=== PATIENT | female | born 1995 | race African-American/Black ===

== ENCOUNTER 2019-01-17 17:09 | Outpatient (CLI) | payer OTHER ==
[~2019-01-17] VITALS: Ht 152.4 cm; Wt 72.9 kg
[2019-01-17 17:25] VITALS: BP 124/81
[2019-01-17] MEDS ORDERED: ACET325C PO (17:31)
[2019-01-17] MEDS ORDERED: PRENTAB9 PO (17:31)
[2019-01-17 18:17] LABS: BASO % 0.2 % (0.0-1.0); EOS % 0.2 % (0.0-3.0); HEMATOCRIT 35.4 % (36.0-47.0); HEMOGLOBIN 11.6 g/dl (12.0-15.5); LYMPH # 1.2 10^3/uL (1.5-6.5); LYMPH % 14.3 % (24.0-44.0); MEAN CORPUSCULAR HEMOGLOBIN 28.6 pg (27.0-33.0); MEAN CORPUSCULAR HGB CONC 32.8 g/dl (32.0-36.5); MEAN CORPUSCULAR VOLUME 87.4 fl (80.0-96.0); MONO # 0.7 10^3/uL (0.0-0.8); MONO % 8.8 % (0.0-5.0); NEUTROPHILS # 6.1 10^3/uL (1.8-7.7); NEUTROPHILS % 75.3 % (36.0-66.0); PLATELET COUNT, AUTOMATED 180 10^3/uL (150-450); RED BLOOD COUNT 4.05 10^6/uL (4.00-5.40); WHITE BLOOD COUNT 8.2 10^3/uL (4.0-10.0)
== END 2019-01-17 18:54 | disposition home or self-care (01) ==
LOC: M LDO 17:09
PROVIDERS: ATTEND Obstetrics & Gynecology
DX: O26.893 Other specified pregnancy related conditions, third trimester (principal); R07.82 Intercostal pain; O99.89 Other specified diseases and conditions complicating pregnancy, childbirth and the puerperium; M93.28 Osteochondritis dissecans other site; Z3A.32 32 weeks gestation of pregnancy
CPT/HCPCS: 36415; 59025; 85025; G0378; G0463

== ENCOUNTER 2019-01-24 15:31 | Outpatient (CLI) | payer OTHER ==
[~2019-01-24] VITALS: Ht 152.4 cm; Wt 72.8 kg
[~2019-01-24 15:31] MED LIST: ACET325C PO; PRENTAB9 PO
[2019-01-24 15:49] VITALS: BP 124/77
[2019-01-24 16:54] LABS: APPEARANCE, URINE HAZY (CLEAR); BACTERIA, URINE AUTO 2+ (NEGATIVE); BILIRUBIN, URINE AUTO NEGATIVE (NEGATIVE); BLOOD, URINE BLOOD 3+ (NEGATIVE); COLOR, URINE RED (YELLOW); GLUCOSE, URINE (UA) AUTO NEGATIVE (NEGATIVE); KETONE, URINE AUTO NEGATIVE (NEGATIVE); LEUKOCYTE ESTERASE, URINE AUTO TRACE (NEGATIVE); NITRITE, URINE AUTO NEGATIVE (NEGATIVE); PROTEIN, URINE AUTO 1+ mg/dL (NEGATIVE); RBC, URINE AUTO TNTC /HPF (0-3); SPECIFIC GRAVITY URINE AUTO 1.006 (1.002-1.035); SQUAMOUS EPITHELIAL CELL UR AU 12 /HPF (0-6); UROBILINOGEN, URINE AUTO 0.2 mg/dL (0.0-2.0); WBC, URINE AUTO 37 /HPF (0-3)
--- NOTE | 2019-01-24 17:09 | IPNPDOC ---
Text Note Date of Service The patient was seen on 01/24/19. NOTE Triage Note Rekha is a 23yo with SIUP at approx 33wk presenting with an episode of bloody urination, no vaginal bleeding. She was seen in triage on and [address] Tolentino and then me in triage for right upper back/side pain at which time she diagnosed with costochondritis (normal CBC and urine dip with SCE cl/th/high and no CVAT). She notes that she continued to have intermittent pain after those presentations in the same location- until this afternoon when she had the episode of bloody urination. She has had absolutely no pain since then. She does not feel ctx. Has had no LOF. Good movement. No f/c/n/v. Denies dysuria/frequency. Vitals wnl, afebrile General: WDWN, resting comfortably in bed Abdomen: soft, NTTP, gravid SSE (RN as fire sprinkler installer): NO blood in vaginal vault, normal white physiologic discharge, cervix is visually closed/thick/high Cat I FHRT with + accels, mod oc, no decels [place]: irregular ctx Labs: Urinalysis: red blood cells too numerous to count, 12 squam, trace LE, 37 WBC, negative nitrite Assessment: Rekha is a 23yo with SIUP at approx 33wk with bloody urination and resolution of right side pain, which is consistent with passage of renal nephrolith. UA shows RBCs too numerous to count. No dysuria or fevers, no concern for pyelo. SSE shows cervix thick/closed/high- has irregular ctx, but no concern for PTL (also had irreg ctx on 2 prior presentations). Reassuring status. Plan: -discussed dx of likely having passed kidney stone -safe for discharge home -continue routine OB appts -encouraged greatly increasing hydration -return precautions discussed MD WLALACE Horowitz Fishbone, I+O VSSolo, I+O Vital Signs Date Time Temp Pulse Resp B/P (MAP) Pulse Ox O2 Delivery O2 Flow Rate FiO2 01/24/19 15:49 98.6 85 18 124/77 (93) Anna Escobedo MD January 24, 2019 17:09
== END 2019-01-24 17:05 | disposition home or self-care (01) ==
LOC: M LDO 15:31
PROVIDERS: ATTEND Obstetrics & Gynecology
DX: O99.89 Other specified diseases and conditions complicating pregnancy, childbirth and the puerperium (principal); M54.9 Dorsalgia, unspecified; R31.9 Hematuria, unspecified; Z3A.33 33 weeks gestation of pregnancy
CPT/HCPCS: 59025; 81001; G0378; G0463

== ENCOUNTER 2019-02-11 19:30 | Outpatient (CLI) | payer OTHER ==
[~2019-02-11] VITALS: Ht 152.4 cm; Wt 79.1 kg
[2019-02-11] VITALS (7 sets, daily range): BP systolic 137–166; BP diastolic 87–104
[2019-02-11 20:28] LABS: HEMATOCRIT 32.7 % (36.0-47.0); HEMOGLOBIN 11.1 g/dl (12.0-15.5); MEAN CORPUSCULAR HEMOGLOBIN 28.5 pg (27.0-33.0); MEAN CORPUSCULAR HGB CONC 33.9 g/dl (32.0-36.5); MEAN CORPUSCULAR VOLUME 83.8 fl (80.0-96.0); PLATELET COUNT, AUTOMATED 161 10^3/uL (150-450); WHITE BLOOD COUNT 7.3 10^3/uL (4.0-10.0)
[2019-02-11] MEDS ORDERED: BETAMETHASONE SOLUSPAN 6MG/ML INJ 5ML (J0702) IM ONE (20:30)
[2019-02-11 20:50] LABS: ALBUMIN 2.4 GM/DL (3.2-5.2); ALT/SGPT 11 U/L (12-78); BILIRUBIN,TOTAL 0.3 MG/DL (0.2-1.0); BLOOD UREA NITROGEN 12 MG/DL (7-18); CALCIUM LEVEL 8.3 MG/DL (8.5-10.1); CARBON DIOXIDE LEVEL 24 MEQ/L (21-32); CHLORIDE LEVEL 113 MEQ/L (98-107); CREATININE FOR GFR 0.85 MG/DL (0.55-1.30); GLOMERULAR FILTRATION RATE > 60.0 (>60); GLUCOSE, FASTING 100 MG/DL (70-100); LDH LACTATE DEHYDROGENASE 244 U/L (84-246); POTASSIUM SERUM 3.7 MEQ/L (3.5-5.1); SODIUM LEVEL 143 MEQ/L (136-145); TOTAL PROTEIN 5.8 GM/DL (6.4-8.2)
[2019-02-11] MEDS ORDERED: ACETAMINOPHEN TAB 650MG DOSE (2X325MG) PO PRN (21:00)
--- NOTE | 2019-02-11 21:18 | IPNPDOC ---
Text Note Date of Service The patient was seen on 02/11/19. NOTE Ms. Martini is a 23 yo at 36+1 weeks gestation with known pre eclampsia who presented to L&D for a blood pressure check this evening. During her clinic appointment this past Thursday she was noted to have new onset hypertension. She was directed to complete tox labs, including a 24 hour urine protein collection which just resulted today and was 743 mg, ruling her in for pre eclampsia. She was then directed to complete a blood pressure check in the office, however she was out of town so came to L&D this evening for the BP check instead when she returned. Tonight she reports feeling well. She has had intermittent headaches over the last couple days but nothing severe. She denies any visual changes, RUQ pain, or SOB. is otherwise uncomplicated. Vitals - BPs mostly mildly elevated, but had two severe range: 160s/90s. Afebrile, non tachycardic. General - AAOX3, sitting up in bed, NAD Abdomen - Gravid uterus, no fundal tenderness Extremities - No edema Bedside TAUS - Viable SIUP in cephalic presentation. JITENDRA 12.8cm. FHR tracing - Cat I with BL 120, moderate variability, +accels, no decels Labs: CBC - 7.3>11.1/32.7<161 BMP - 143/3.7--113/24--12/0.85<100 AST/ALT - 23/11 LDH - 244 Ms. Martini has known pre eclampsia and is clinically stable with normal kidney and liver function, however her blood pressure has trended upwards this evening. Will start her on PO labetalol and admit for observation overnight. 12mg IM BTMZ given at ~2030. Will move towards delivery should blood pressure be consistently severe range or she develops any other severe features of pre eclampsia. GBS swab performed on Thursday and results are currently still pending. All patient questions answered. DO WALLACE Menezes,Solo, I+O VS, Solo, I+O Laboratory Tests 02/11/19 20:21 Red Blood Count 3.90 L, Mean Corpuscular Volume 83.8, Mean Corpuscular Hemoglobin 28.5, Mean Corpuscular Hemoglobin Concent 33.9, Red Cell Distribution Width 12.4, Calcium Level 8.3 L, Aspartate Amino Transf (AST/SGOT) 23, Alanine Aminotransferase (ALT/SGPT) 11 L, Lactate Dehydrogenase 244, Alkaline Phosphatase 118 H, Total Bilirubin 0.3, Total Protein 5.8 L, Albumin 2.4 L THOMAS NELSON. DO Feb 11, 2019 21:18
[2019-02-11] MEDS: LABETALOL 200 MG TAB PO SCH (21:49)
[2019-02-12] VITALS (16 sets, daily range): BP systolic 123–159; BP diastolic 73–99
[2019-02-12] MEDS: LABETALOL 200 MG TAB PO SCH ×2 (08:03→21:14)
[2019-02-12 20:05] LABS: HEMATOCRIT 30.1 % (36.0-47.0); HEMOGLOBIN 10.1 g/dl (12.0-15.5); MEAN CORPUSCULAR HEMOGLOBIN 28.9 pg (27.0-33.0); MEAN CORPUSCULAR HGB CONC 33.6 g/dl (32.0-36.5); PLATELET COUNT, AUTOMATED 142 10^3/uL (150-450); WHITE BLOOD COUNT 9.9 10^3/uL (4.0-10.0)
[2019-02-12] MEDS ORDERED: BETAMETHASONE SOLUSPAN 6MG/ML INJ 5ML (J0702) IM ONE (20:30)
[2019-02-12 20:31] LABS: ALBUMIN 2.4 GM/DL (3.2-5.2); ALT/SGPT 10 U/L (12-78); BILIRUBIN,TOTAL 0.2 MG/DL (0.2-1.0); BLOOD UREA NITROGEN 12 MG/DL (7-18); CALCIUM LEVEL 7.9 MG/DL (8.5-10.1); CARBON DIOXIDE LEVEL 22 MEQ/L (21-32); CHLORIDE LEVEL 112 MEQ/L (98-107); CREATININE FOR GFR 0.81 MG/DL (0.55-1.30); GLOMERULAR FILTRATION RATE > 60.0 (>60); GLUCOSE, FASTING 128 MG/DL (70-100); LDH LACTATE DEHYDROGENASE 224 U/L (84-246); POTASSIUM SERUM 3.9 MEQ/L (3.5-5.1); SODIUM LEVEL 143 MEQ/L (136-145); TOTAL PROTEIN 5.5 GM/DL (6.4-8.2)
[2019-02-12 22:37] LABS: TOTAL PROTEIN,RANDOM URINE 160.8 MG/DL (0.0-12.0)
[2019-02-13] VITALS: BP 159/84
[2019-02-13 00:28] VITALS: BP 127/73
[2019-02-13 01:28] VITALS: BP 142/98
[2019-02-13 02:28] VITALS: BP 131/67
[2019-02-13 03:28] VITALS: BP 143/85
[2019-02-13 04:28] VITALS: BP 143/82
--- NOTE | 2019-02-13 16:15 | IPN ---
DATE: 02/12/2019 This patient was seen yesterday in the clinic for a routine evaluation and check and was found to have an elevated blood pressure of 152/1100 and 134/78. She was brought to labor and delivery for evaluation of her blood pressure and she had a complete workup, including 24-hour urine protein collection, which she had a total 23-hour urine protein of 743. She was supposed to come for reevaluation; however, she ended up in [place] and then came back from there to have evaluation. She had a one severe and one midrange blood pressure. She denied any uterine tenderness. She denied any right upper quadrant pain, visual disturbances, contractions or pedal edema. Her hemoglobin was 11.1, hematocrit 32.7 and platelets were 161. Her chemistry indicated that her BUN was 12, her creatinine was 0.85, her GFR is greater than 60. ALT was low, LDH and alkaline phosphatase were low. Glucose was 100. She was started on 200 of labetalol twice a day and closely monitored. She did have an ultrasound today, which showed that the vertex presenting, adequate amniotic fluid, no contractions and a category one strip. Throughout the day, her vital signs, her blood pressures all remaining in mid range. She did not have any severe blood pressures. Her lowest blood pressure on medication was 128/76. Her highest was 140/99. Our plan of management was to give her steroids, in which she has had her first dose at 2000 hours on the 02/11/2010. Her second dose at 2000 hours on 02/12/2019. We will redo her blood work after her second dose of steroids. The plan of care is to hopefully get her to 37 weeks with induction of labor unless there is severe range blood pressures or a significant change in her lab work. The patient expressed understanding, as did her . We answered all questions.
--- NOTE | 2019-02-14 06:57 | IPN ---
DATE: 02/12/2019 at 2000 This lady is being evaluated for preeclampsia and presently had repeat blood work. Her blood work repeat all came back normal. The only deviation was the protein/creatinine ratio which was 0.70. On evaluation, her blood pressures are within normal limits. She has had no severe range blood pressures. She has had no right upper quadrant pain. No visual disturbances. She does have a dull headache which is relieved with Tylenol. On the rest of the examination presently, eye grounds are normal, reflexes are normal upper and lower. Abdomen soft. She has a category one strip with some uterine irritability. No loss of fluid and no vaginal bleeding. Assessment is good kick chart. She did have ultrasound which confirmed the vertex presentation. We will continue to monitor her and our plan of care is to do induction of labor at 37 weeks unless indicated otherwise. The patient will be reevaluated in the morning.
--- NOTE | 2019-02-14 10:19 | DSES ---
DATE OF ADMISSION: 02/11/2019 DATE OF DISCHARGE: 02/13/2019 This lady is a 23-year-old one para 0 at 36 and 4 weeks of gestation who was admitted for elevated blood pressures. She had a 24-hour urine which indicated high protein of 743 and she had labs which suggests a preeclampsia. She denies any right upper quadrant pain, visual disturbances, shortness of breath or decrease in urinary output. She had one severe range blood pressure and was admitted. She was placed on labetalol and she was given steroids to enhance lung maturity for induction at 37 weeks of gestation. At 24 hours after her labetalol was complete reviewing her vital signs she had the occasional midrange blood pressure but the rest had been relatively within normal limits. The plan of care which was ongoing from admission was to get her to 37 weeks for induction of labor which will be on Thursday. Presently on evaluation she is afebrile, temperature 97.7. Her pulse is a is 93, respirations are 18 and her blood pressure is 140/80. She still had a dull headache for which Tylenol seems to be adequate. She is presently on Labetalol 200 twice a day which is stabilizing her blood pressure. On reviewing this morning and her lab work her hemoglobin 10.1, hematocrit 30.1 and platelets were 142. Her chemistry was all within normal limits. Liver enzymes and BUN and creatinine. The only other range blood pressure was her protein creatinine ratio of 0.75. Our plan of care at the present time is to have her eat and do a nonstress test and if blood pressures remain stable she is to be discharged and return to the clinic within 24 hours for blood pressure check. She was counseled regarding right upper quadrant pain, visual disturbances and increasing edema and decreased movement and or her urinary output declines the patient expresses understanding of the plan of care. She was dispensed her labetalol and our plans are to discharge her and 0900 hours this morning. All questions were answered. We had a 25-minute discussion which she understands we are attempting to get her to 37 weeks and she is booked for 0630 hours 4 days from now when she will be 37 weeks gestation.
== END 2019-02-13 08:30 | disposition home or self-care (01) ==
LOC: M LDO 19:30
PROVIDERS: ATTEND Obstetrics & Gynecology
DX: O26.893 Other specified pregnancy related conditions, third trimester (principal); R03.0 Elevated blood-pressure reading, without diagnosis of hypertension; O14.93 Unspecified pre-eclampsia, third trimester; Z3A.36 36 weeks gestation of pregnancy
CPT/HCPCS: 36415; 59025; 80053; 82570; 83615; 84156; 85027; 96372; G0463; J0702

== ENCOUNTER 2019-02-15 13:51 | Inpatient (IN) | payer OTHER ==
[2019-02-15] VITALS (36 sets, daily range): BP systolic 118–188; BP diastolic 76–117
[~2019-02-15] VITALS: Ht 152.4 cm; Wt 75.4 kg
[2019-02-15] MEDS ORDERED: MAG Sulf (L&D) 4 GM/100 ML 4 GM in APPROPRIATE DILUENT 1 EA IV ONE (14:00)
[2019-02-15] MEDS ORDERED: LABETALOL HCL 100 MG/20 ML VIAL As Ordered ONE ×3 (14:06→15:42)
[2019-02-15 14:15] LABS: HEMATOCRIT 31.8 % (36.0-47.0); HEMOGLOBIN 10.9 g/dl (12.0-15.5); MEAN CORPUSCULAR HEMOGLOBIN 29.5 pg (27.0-33.0); MEAN CORPUSCULAR HGB CONC 34.3 g/dl (32.0-36.5); MEAN CORPUSCULAR VOLUME 86.2 fl (80.0-96.0); PLATELET COUNT, AUTOMATED 131 10^3/uL (150-450); RED BLOOD COUNT 3.69 10^6/uL (4.00-5.40); WHITE BLOOD COUNT 18.9 10^3/uL (4.0-10.0)
[2019-02-15] MEDS ORDERED: MAGNESIUM SULFATE 50% 5GM/10ML(4MEQ/ML) SYRINGE XX ONE (14:15)
[2019-02-15] MEDS ORDERED: MIDAZOLAM INJ 2 MG/2 ML VIAL (J2250) As Ordered ONE ×2 (14:18→15:02)
[2019-02-15] MEDS ORDERED: fentaNYL 100 MCG/2 ML INJECTION (J3010) As Ordered ONE ×2 (14:19→14:20)
[2019-02-15 14:22] LABS: INR 1.09; PARTIAL THROMBOPLASTIN TIME 25.9 SECONDS (25.4-37.6); PROTHROMBIN TIME 14.2 SECONDS (12.1-14.4)
[2019-02-15] MEDS ORDERED: OXYTOCIN INJ 10 UNITS/ML VIAL (J2590) As Ordered ONE (14:22)
[2019-02-15] MEDS ORDERED: ROCURONIUM BROMIDE 50 MG/5 ML VIAL As Ordered ONE (14:22)
[2019-02-15 14:29] LABS: ALBUMIN 2.6 GM/DL (3.2-5.2); ALT/SGPT 61 U/L (12-78); BILIRUBIN,DIRECT 0.2 MG/DL (0.0-0.2); BILIRUBIN,TOTAL 0.5 MG/DL (0.2-1.0); BLOOD UREA NITROGEN 13 MG/DL (7-18); CALCIUM LEVEL 7.9 MG/DL (8.5-10.1); CARBON DIOXIDE LEVEL 24 MEQ/L (21-32); CHLORIDE LEVEL 109 MEQ/L (98-107); CREATININE FOR GFR 0.86 MG/DL (0.55-1.30); GLOMERULAR FILTRATION RATE > 60.0 (>60); GLUCOSE, FASTING 74 MG/DL (70-100); MAGNESIUM LEVEL 1.7 MG/DL (1.8-2.4); POTASSIUM SERUM 3.4 MEQ/L (3.5-5.1); SODIUM LEVEL 140 MEQ/L (136-145); TOTAL PROTEIN 5.9 GM/DL (6.4-8.2); URIC ACID 8.8 MG/DL (2.6-6.0)
[2019-02-15] MEDS ORDERED: MAGNESIUM SULFATE 1GM/2ML (8MEQ/2ML) VIAL (J3475) ONE (14:30)
[2019-02-15 14:33] LABS: LYMPHOCYTES 8 % (16-52); METAMYELOCYTES 1 % (0-0); MONOCYTES 9 % (0-8); NEUTROPHILS 82 % (35-75); PLATELET ESTIMATE NORMAL (NORMAL)
[2019-02-15] MEDS ORDERED: dexameTHASONE 4 MG/ML 1ML VIAL (J1100) As Ordered ONE (14:36)
[2019-02-15 14:41] LABS: CORD GAS ABE A -3.6; CORD GAS HCO3 A 26.6 MEQ/L; CORD GAS O2 SAT A 17.5 %; CORD GAS PH A 7.174 UNITS; CORD GAS PO2 A 13.2 mmHg; CORD GAS SBC A 19.7 MEQ/L; CORD GAS TCO2 A 28.9 MEQ/L
[2019-02-15 14:44] LABS: CORD GAS ABE V -6.7; CORD GAS HCO3 V 21.9 MEQ/L; CORD GAS O2 SAT V 80.8 %; CORD GAS PCO2 V 56.4 mmHg; CORD GAS PH V 7.208 UNITS; CORD GAS SBC V 18.7 MEQ/L; CORD GAS TCO2 V 23.7 MEQ/L
[2019-02-15 15:06] LABS: HEMOGLOBIN 9.5 g/dl (12.0-15.5); MEAN CORPUSCULAR HEMOGLOBIN 29.2 pg (27.0-33.0); MEAN CORPUSCULAR HGB CONC 32.8 g/dl (32.0-36.5); MEAN CORPUSCULAR VOLUME 89.2 fl (80.0-96.0); PLATELET COUNT, AUTOMATED 112 10^3/uL (150-450); RED BLOOD COUNT 3.25 10^6/uL (4.00-5.40); WHITE BLOOD COUNT 18.1 10^3/uL (4.0-10.0)
[2019-02-15 15:21] LABS: INR 1.2; PROTHROMBIN TIME 15.4 SECONDS (12.1-14.4)
[2019-02-15 15:22] LABS: PARTIAL THROMBOPLASTIN TIME 28.1 SECONDS (25.4-37.6)
[2019-02-15 16:02] LABS: ABG BASE EXCESS -3.5 (-2.0-2.0); ABG HCO3 18.7 MEQ/L (22.0-26.0); ABG O2 SATURATION 99.7 % (95.0-99.0); ABG PARTIAL PRESSURE CO2 25.9 mmHg (35.0-45.0); ABG PARTIAL PRESSURE O2 260.7 mmHg (75.0-100.0); ABG SITE LT RADIAL; ABG STANDARD HCO3 21.6 MEQ/L (22.0-26.0); ABG TOTAL CO2 19.5 MEQ/L (22.0-29.0); ABG pH (ARTERIAL) 7.476 UNITS (7.350-7.450)
[2019-02-15 16:04] LABS: ALT/SGPT 49 U/L (12-78); BILIRUBIN,TOTAL 0.2 MG/DL (0.2-1.0); CREATININE FOR GFR 0.96 MG/DL (0.55-1.30); GLOMERULAR FILTRATION RATE > 60.0 (>60); LDH LACTATE DEHYDROGENASE 554 U/L (84-246); URIC ACID 8.5 MG/DL (2.6-6.0)
[2019-02-15] MEDS ORDERED: MIDAZOLAM INJ 2 MG/2 ML VIAL (J2250) IV PRN (16:15)
[2019-02-15] MEDS: PROPOFOL 1,000 MG in APPROPRIATE DILUENT 1 EA IV SCH ×3 (16:16→21:08)
[2019-02-15] MEDS: LABETALOL HCL 200 MG in D5W 160 ML IV SCH ×2 (16:24→18:30)
[2019-02-15] MEDS ORDERED: LABETALOL HCL 200 MG in D5W 160 ML IV SCH (16:30)
--- NOTE | 2019-02-15 16:35 | RO ---
DATE OF PROCEDURE: 02/15/2019 PREPROCEDURE DIAGNOSIS: Hypertension. POSTPROCEDURE DIAGNOSIS: Hypertension. PROCEDURE: Insertion of triple lumen central venous catheter, site is right femoral vein. SURGEON: Dr. Jus Yang POLICY CHANGE CLERK: ANESTHESIA: Procedure was performed emergently. DESCRIPTION OF PROCEDURE: After the right femoral area was prepped and draped in the usual sterile manner, the right femoral vein was cannulated. In a modified Seldinger technique, a triple lumen central venous catheter was advanced. Good venous return was obtained from all three ports. Each port was then flushed. The line was then sutured in place. Sterile dressing was applied. No complications noted.
--- NOTE | 2019-02-15 16:36 | REP ---
Portable chest, 04:18 p.m., single AP view with the patient semi upright: There are no comparison studies. The lung bell are clear. The cardiac size is normal. The benito, mediastinum, skeletal structures are unremarkable. There is no tracheal tube with the tip terminating satisfactorily at the level of the aortic arch, above the magnolia. There is an endotracheal tube with the tip terminating in the upper abdomen satisfactorily. The precise location of the distal tip is excluded at the inferior film margin. Impression: No acute cardiopulmonary findings. ET tube and NG tube as described. Electronically Signed by Abner Bacon MD 02/15/2019 04:27 P
--- NOTE | 2019-02-15 16:37 | REP ---
KUB ABDOMEN AND PELVIS: KUB film of the abdomen and pelvis was performed. Bowel gas pattern is normal. No radiopaque foreign body is seen overlying the abdomen or pelvis. Visualized osseous structures are unremarkable. Electronically Signed by Abner Millan MD 02/15/2019 04:46 P
[2019-02-15] MEDS ORDERED: MEASLES,MUMPS,RUBELLA VACCINE INJ (MMR-II) (90707) SC SCH (16:45)
[2019-02-15] MEDS ORDERED: RHOGAM 300 MCG (1500 IU) INJ (J2790) IM SCH (16:45)
[2019-02-15] MEDS ORDERED: niCARdipine IV 40 MG in APPROPRIATE DILUENT 1 EA IV SCH (17:00)
[2019-02-15] MEDS: MORPHINE 4 MG/ML 1ML VIAL/SYRINGE (J2270) IV PRN ×4 (17:02→21:11)
--- NOTE | 2019-02-15 17:20 | CCN ---
DATE: 02/15/2019 START TIME: 1500 hours STOP TIME: 1544 hours I attended Rekha Martini first starting in the labor and delivery suite and then here on arrival in the intensive care unit. A 23-year-old female with preeclampsia, found unresponsive at home. Brought into the emergency room (ER) in [place], transferred here. On arrival, blood pressure was in excess of 200 systolic. She had a seizure. She was taken immediately to labor and delivery. A healthy was able to be delivered. She was treated with magnesium, general anesthesia. Pressures in the operating room (OR) 120-140s. The case was discussed with Dr. Dan as well as Dr. Rose. On arrival to the intensive care unit, heart rate 110 to 120 with a sinus mechanism, blood pressure 169/110. She was given 15 mg of intravenous (IV) labetalol, and a labetalol drip is being started. Placed on propofol. Versed is being used as well as morphine for pain. There was some question of whether or not she had almost like an angioedema presentation. She does have diffuse edema and lips are apparently chronically swollen but her tongue was quite prominent. The remainder of exam shows her to be sedate. Trachea is in the midline. Membranes are moist. Chest is clear to both auscultation and percussion . No specific focal adventitious breath sounds are identified. Cardiac exam: Tachycardic but regular. Peripheral pulses are palpable, and there is diffuse edema. Abdomen: Shows her fresh incision without significant drainage. Extremities: Without cyanosis or clubbing. Neurologic: She is sedate. Available lab work shows a white blood cell count of 18.1, hemoglobin 9.5, electrolytes are pending. Coagulation studies (coags): INR 1.2, fibrinogen 230, which is within normal limits. The most pressing problems requiring my presence at the bedside: Respiratory failure secondary to preeclampsia with seizure. Altered mental status. Seizure secondary to the above. I have spoken at length with Dr. Dan. At this point, will aggressively control her blood pressure. Since she did have a seizure and was unresponsive, she will need a CT of her head once we get her blood pressure under better control. Oxygenation status appears reasonable, but we await her arterial blood gas. Ventilator adjustments made by myself. At this point, we await the outcome of the above. She remains critically ill. I left the bedside at 1544 hours. 44 minutes of critical care delivered at the bedside not including procedures. BRUCE
[2019-02-15 17:47] LABS: BLOOD UREA NITROGEN 11 MG/DL (7-18); CALCIUM LEVEL 7.8 MG/DL (8.5-10.1); CARBON DIOXIDE LEVEL 24 MEQ/L (21-32); CHLORIDE LEVEL 106 MEQ/L (98-107); GLOMERULAR FILTRATION RATE > 60.0 (>60); GLUCOSE, FASTING 124 MG/DL (70-100); POTASSIUM SERUM 3.2 MEQ/L (3.5-5.1); SODIUM LEVEL 138 MEQ/L (136-145)
[2019-02-15 19:16] LABS: HEMATOCRIT 31.6 % (36.0-47.0); HEMOGLOBIN 10.4 g/dl (12.0-15.5); MEAN CORPUSCULAR HEMOGLOBIN 28.9 pg (27.0-33.0); MEAN CORPUSCULAR HGB CONC 32.9 g/dl (32.0-36.5); MEAN CORPUSCULAR VOLUME 87.8 fl (80.0-96.0); PLATELET COUNT, AUTOMATED 129 10^3/uL (150-450); WHITE BLOOD COUNT 20.5 10^3/uL (4.0-10.0)
--- NOTE | 2019-02-15 19:50 | REPVR ---
EXAM: CT Head Without Contrast EXAM DATE/TIME: 02/15/2019 7:42 PM CLINICAL HISTORY: 23 years old, female; Other: S/P seizure TECHNIQUE: Imaging protocol: Axial computed tomography images of the head without contrast. Radiation optimization: All CT scans at this facility use at least one of these dose optimization techniques: automated exposure control; mA and/or kV adjustment per patient size (includes targeted exams where dose is matched to clinical indication); or iterative reconstruction. COMPARISON: No relevant prior studies available. FINDINGS: Brain: Bilateral subarachnoid hemorrhages. Left sided intraparenchymal hemorrhages measuring 2.2 x 1.4 cm, surrounded by cytotoxic edema, and 1.2 x 1.1 cm. Impression Ventricles: Normal. No ventriculomegaly. Bones/joints: Unremarkable. No acute fracture. Sinuses: Visualized sinuses are unremarkable. No fluid levels. Mastoid air cells: Visualized mastoid air cells are well aerated. No mastoid effusion. Soft tissues: Unremarkable. IMPRESSION: Bilateral subarachnoid hemorrhages and intraparenchymal hemorrhages on the left as described above. A critical call has been made to speak with the ordering physician/practitioner. This report will be amended once consultation has occurred. Electronically signed by: Teo Candelario On 02/15/2019 19:50:06 PM
[2019-02-15] MEDS ORDERED: levETIRAcetam INJection 1,000 MG in D5W 100 ML IV STA (20:47)
--- NOTE | 2019-02-15 20:56 | RO ---
DATE OF PROCEDURE: 02/15/2019 PREOPERATIVE DIAGNOSIS: Eclamptic seizure times two, at 36 and 4 weeks of gestation. POSTOPERATIVE DIAGNOSIS: Eclamptic seizure times two, at 36 and 4 weeks of gestation. OPERATION PROPOSED: STAT section. OPERATION PERFORMED: STAT section. SURGEON: Dr. Rory Dan BEAD TRIMMER: Dr. Ajay Doyle for extraction, retraction and visualization. ANESTHESIA: General. ESTIMATED BLOOD LOSS: 500 mL. This lady was transferred up from emergency with having had observed eclamptic seizure and unresponsive. She was moved from the stretcher to the operating table and immediately a splash of iodine was over her abdomen. heart rate was initially recorded at 160 beats per minute. An emergency section was performed with a low transverse incision through the abdomen through to the uterus. The bladder was quite distended. Despite that and pushing it down, we did a low transverse incision into the uterus. ARM draining clear liquor. We attempted to deliver this baby by vertex; however, the baby began floating away and therefore, it was converted into a breech with a breech extraction. We delivered a live male weighing 3508 grams, 7 pounds 12 ounces, scores of 1, 3, and 8 at one, five, and ten minutes respectively. The arterial pH was 7.17, base excess -3.6, venous pH was 7.20, base excess -6.7. At this point, Dr. Strange entered the room for evaluation and assessment of the baby. The patient was given 5 units of IV push Pitocin and 20 units in a bottle. At this time, the placenta was manually removed, three vessels in the cord, membranes and tissues intact. It was sent off to pathology under separate cover. The uterus was extracted out of abdomen and then we took a break in order for them to put the Moser catheter in the bladder and deflate the bladder. Once that was done, using the bladder blade, we visualized the hysterotomy scar and we oversewed the lower incision in two layers, interrupted figure-of-8 for the second layer, reperitonealization was performed. With instrument and pad count correct, we sucked out the external blood in the cul-de-sac posteriorly, visualized the ovaries and tubes to the fimbriated end. The patient was given 2 grams of Ancef on the table. Her blood pressures became normalized while she was intubated, and a call was put into the ICU for a bed. Dr. Yang came in attendance for handoff. With the uterus well contracted under Pitocin, the uterus was replaced in the abdomen in anatomical position. Evaluation of the lower segment scar was dry, and then the abdomen was closed, running stitch for the peritoneum, same for the fascia, interrupted for subcu, Dexon to the skin with spray and Telfa. We expressed clots out of the uterus. The uterus was 2 above. She has a fundal-type fibroid, which may be the etiology behind the uterus being elevated. She diuresed 450 mL of clear urine, and the lady was then moved to the ICU under observational status and admitted for continued care regarding her eclampsia. The patient was stable on transfer to the ICU with no other visualized seizures occurring. In summary, we have a 36 and 4 week patient with eclamptic seizure observed times two, delivered by STAT section a live male infant. Radiology was called and confirmed that there were no instruments in the abdomen. The pad count was correct.
--- NOTE | 2019-02-15 21:01 | HPE ---
DATE OF ADMISSION: 02/15/2019 This lady is a 23-year-old 1, para 0 at 36 and 4 weeks of gestation who was originally admitted for elevated blood pressure on 02/11/2019 and discharged on 02/13/2019 with instructions to take her labetalol 200 twice a day and her medications were provided to her and to have someone at home with her on a 24-hour basis and to have a repeat of her blood pressure the next day at a clinic. She had a 24-hour urine previously which indicated a high protein of 743. She had laboratory work which suggested preeclampsia. She had no evidence of right upper quadrant pain, visual disturbances, shortness of breath, or decreased urinary output. She had once severe range blood pressure in the clinic and then when she was in labor and delivery for observation status, her blood pressures were midrange to normal. She was doing well on her labetalol 200 twice a day and after 24 hours completed with her vital signs and her steroid complete, she was counseled to be at home with the patient there and continue with the presence of people there and to have maintaining her medications. She did come the next day to the clinic and her blood pressure was 137/84, but she told us that she did not take any of her medications as prescribed 24 hours before. She did go home. She had no preeclamptic evidence of reflexes, right upper quadrant pain or visual disturbances. She was then brought to the emergency room by ambulance. The story is that her mother in [place] called her, had no response to her telephone call, and she called the police (MP) at [place]. They went to her place of residence and found her unresponsive on the floor. They called 911 and the ambulance brought her to the emergency room. In the emergency room, she was found to be unresponsive. She did have one observed seizure in the emergency room. The assessment in the emergency room which is limited showed that she had nasal cannula at four liters per minute. Her oxygen saturations were at 92%. Her vital signs showed that her blood pressure is 161/100, mean arterial pressure was 120, pulse rate was 96 beats per minute, her respirations were 10, and pulse oximetry at the bedside was 95%. Nursing assessment was that she was actively seizing in the hallway on route to maternity. However, that was one episode that was visualized as she was entering into the operating theater. Her neurological assessment in emergency room was positive. She had altered mental status, duration of time was unknown, orientation was unable to assess as she was not responses. Seizure precautions were taken. She did respond to deep pain. She did not maintain eye contact. She was aphasic, unable to comprehend which we said. She did not have any facial droop and her behavior we were unable to evaluate. When she came to the section room from the emergency room, she had an active seizure while we transferred her to the bed. Her blood pressure at 2:00 o'clock was 170/100. She was immediately intubated by anesthesia who was there and neonatology was called. She was declared as a stat section. There was a splash and cut in order to accommodate getting the baby out as quickly as possible. The summary and working diagnosis is eclamptic seizure times two. Pulse oximetry on room air was 95%. She was still unresponsive at the time of section.
--- NOTE | 2019-02-16 08:12 | IPN ---
DATE: 02/15/2019 This lady is a 23-year-old 1, para 1, who came in to the emergency room with a history of an eclamptic seizure and unresponsive. She was diagnosed as having an eclamptic seizure at 36 and 4 weeks of gestation. In emergency, she was given 5 grams in each buttock of magnesium sulfate for seizure prophylaxis, intravenous (IV) was started, heart was 160 per minute, and she was rushed up to labor and delivery where she had an immediate STAT section of a viable male fetus in good condition. She herself remained intubated, had one visualized seizure getting her on the table prior to section. She was transferred to the intensive care unit (ICU, and she had significant severe range blood pressures somewhere between 174/111, 180/112, 150/103. After having IV labetalol of 100 mg IV, her pressures came down to 140/92, 134/88, and presently at 1845 hours her blood pressure is 122/77, pulse is 88, respirations are 16, and she is diuresing with a total urinary output of 1550, gastrointestinal (GI) drainage with an nasogastric (NG) tube of 50 mL. She had a maximum blood loss of 500 mL at section. Presently, her medications are magnesium sulfate, propofol. She was given prophylactic cephazolin at the time of surgery, and she was then given 2 grams every 8 hours as prophylaxis because of the STAT section and inability to have time to do a proper scrub. We had ordered, when her blood pressures were stable, a CT of her head and an x-ray of her chest, and the CT of the head reported that she had bilateral subarachnoid hemorrhages, left-sided intraparenchymal hemorrhage measuring 2.2 x 1.4 surrounded by cytotoxic edema in a 1.2 x 1.1 cm. The ventricles were normal. The mastoid air cells were normal, and this was a significant bleed related probably to her eclamptic seizures. However, in discussing the chronology of events, at 5 a.m. her mother called her at home and did not receive a response. She called the police. They arrived at 11 a.m. and found her unresponsive, and so we have no idea about the timeline from 5 a.m. to 11 a.m. as to how many seizures she would have ensued. She had a STAT portable x-ray. The lung bell were clear. Cardiac size was normal. The hilum, mediastinum, skeletal structures were unremarkable. She had an endotracheal tube in appropriate position, and there was no evidence to suggest an acute cardiopulmonary finding. I went ahead and called in order to get her transferred to a neuro unit, spoke with a Dr. Mracus Page who, after listening to the story, accepted her in transfer. I reviewed with him her medications. He recommended giving her a gram of Keppra. For the transport, we had organized helicopter transport to [place]. I also spoke with Dr. Bennett, the DENTAL DETAIL REPRESENTATIVE tile mason, in order to review the obstetrical care of this patient and brought him up to speed regarding the events that happened. In summary, we have a 23 year old who had eclamptic seizures, two were observed, had a STAT section for a live male , on CT scan had an intracranial bleed. Patient was being transferred as we speak by helicopter to [place] neuro unit. The mother of this patient gave permission for transport. Spoke with the in regards to the transport, and all players were informed of the plan of care. Dr. Dan spent approximately 1 hour in the setup and execution of the transport and discussion with both the mother and the father of the baby.
== END 2019-02-15 21:25 | disposition short-term general hospital (02) | DRG 772 ==
LOC: EDBD 13:51 → M ED 13:51 → M ED INP 14:00 → M ICU 15:39
PROVIDERS: ADMIT Obstetrics & Gynecology; ATTEND Obstetrics & Gynecology
PROC: 10D00Z1 Extraction of Products of Conception, Low, Open Approach (ICD-10-PCS; principal; 2019-02-15 14:25)
DX: O15.1 Eclampsia complicating labor (principal); G40.89 Other seizures; O99.354 Diseases of the nervous system complicating childbirth; Z37.0 Single live birth; Z3A.36 36 weeks gestation of pregnancy

== ENCOUNTER 2019-06-15 19:41 | Emergency (ER) | payer OTHER ==
[~2019-06-15] VITALS: Ht 149.9 cm; Wt 62.3 kg
[~2019-06-15 19:41] MED LIST changes: -ACET325C PO; +ACET325C5 PO
[2019-06-15] MEDS ORDERED: ESCI10TA2 (19:49)
[2019-06-15 20:36] VITALS: BP 113/68
[2019-06-15] MEDS ORDERED: IBUPROFEN 600 MG TAB PO ONE (21:00)
[2019-06-15 21:27] LABS: BASO % 0.2 % (0.0-1.0); EOS % 0.6 % (0.0-3.0); HEMATOCRIT 39.1 % (36.0-47.0); HEMOGLOBIN 12.6 g/dl (12.0-15.5); LYMPH # 2.5 10^3/uL (1.5-5.0); LYMPH % 38.5 % (24.0-44.0); MEAN CORPUSCULAR HEMOGLOBIN 27.9 pg (27.0-33.0); MEAN CORPUSCULAR HGB CONC 32.2 g/dl (32.0-36.5); MEAN CORPUSCULAR VOLUME 86.7 fl (80.0-96.0); MONO # 0.5 10^3/uL (0.0-0.8); MONO % 7.2 % (0.0-5.0); NEUTROPHILS # 3.5 10^3/uL (1.5-8.5); NEUTROPHILS % 53.3 % (36.0-66.0); PLATELET COUNT, AUTOMATED 306 10^3/uL (150-450); RED BLOOD COUNT 4.51 10^6/uL (4.00-5.40); WHITE BLOOD COUNT 6.5 10^3/uL (4.0-10.0)
--- NOTE | 2019-06-15 22:41 | REPVR ---
PROCEDURE INFORMATION: Exam: US Pelvis Complete, Transabdominal Exam date and time: 06/15/2019 10:17 PM Clinical history: 24 years old, female; Pelvic pain; Additional info: Llq pain, near ovary, sudden onset TECHNIQUE: Imaging protocol: Real-time transabdominal pelvic ultrasound with image documentation. Complete exam. COMPARISON: US BPP W/O NON STRESS TEST 01/19/2019 9:23 AM FINDINGS: Uterus/cervix: The uterus measures 7.2 cm in its cephalocaudad dimension and 4.8 x 6.8 cm in its AP and lateral dimensions. The endometrium measures 15 mm. Right adnexa: The right ovary measures 2.6 x 2.4 x 2.4 cm and demonstrates normal blood flow. Left adnexa: The left ovary measures 4.8 x 2.9 x 1.8 cm and demonstrates normal blood flow and a small follicle. Free fluid: None. Bladder: The bladder is collapsed. IMPRESSION: Negative pelvic sonogram. Electronically signed by: Valdo Isaacs On 06/15/2019 22:40:43 PM
== END 2019-06-15 23:33 | disposition home or self-care (01) ==
LOC: M ED 19:41
DX: R42 Dizziness and giddiness (principal); R10.32 Left lower quadrant pain; Z79.899 Other long term (current) drug therapy

== ENCOUNTER 2019-08-08 12:26 | Emergency (ER) | payer OTHER ==
[~2019-08-08] VITALS: Ht 149.9 cm; Wt 61.4 kg
[~2019-08-08 12:26] MED LIST changes: +ESCI10TA2
[2019-08-08] MEDS ORDERED: TOPI100T9 OR (12:36)
[2019-08-08 14:15] LABS: BASO % 0.3 % (0.0-1.0); EOS # 0.1 10^3/uL (0.0-0.5); HEMATOCRIT 39.1 % (36.0-47.0); HEMOGLOBIN 12.9 g/dl (12.0-15.5); LYMPH # 1.8 10^3/uL (1.5-5.0); LYMPH % 30.3 % (24.0-44.0); MEAN CORPUSCULAR HEMOGLOBIN 27.9 pg (27.0-33.0); MEAN CORPUSCULAR VOLUME 84.6 fl (80.0-96.0); MONO # 0.4 10^3/uL (0.0-0.8); MONO % 7.1 % (0.0-5.0); NEUTROPHILS # 3.7 10^3/uL (1.5-8.5); NEUTROPHILS % 61.1 % (36.0-66.0); PLATELET COUNT, AUTOMATED 299 10^3/uL (150-450); RED BLOOD COUNT 4.62 10^6/uL (4.00-5.40)
[2019-08-08 14:46] LABS: HCG, SERUM QUALITATIVE NEGATIVE (NEGATIVE)
[2019-08-08 14:58] LABS: ALT/SGPT 23 U/L (12-78); BILIRUBIN,DIRECT < 0.1 MG/DL (0.0-0.2); BILIRUBIN,TOTAL 0.3 MG/DL (0.2-1.0); BLOOD UREA NITROGEN 9 MG/DL (7-18); CALCIUM LEVEL 9.4 MG/DL (8.5-10.1); CARBON DIOXIDE LEVEL 24 MEQ/L (21-32); CHLORIDE LEVEL 110 MEQ/L (98-107); CK-MB VALUE MASS 1.5 NG/ML (<3.6); CPK CREATINE PHOSPHOKINASE 290 U/L (26-192); CREATININE FOR GFR 0.65 MG/DL (0.55-1.30); FREE T4 1.05 NG/DL (0.76-1.46); GLOMERULAR FILTRATION RATE > 60.0 (>60); GLUCOSE, FASTING 92 MG/DL (70-100); MB/CK RELATIVE INDEX 0.52 (< OR =4); SODIUM LEVEL 139 MEQ/L (136-145); THYROID STIMULATING HORMONE 0.851 uIU/ML (0.358-3.740); TOTAL PROTEIN 7.5 GM/DL (6.4-8.2); TROPONIN I < 0.02 NG/ML (< 0.10)
--- NOTE | 2019-08-08 15:06 | REP ---
Two-view chest: 10/09/2018. Indication: Chest pain. Comparison: 02/15/2019. Findings: There is no air space consolidation. There is no pleural effusion or pneumothorax. The cardiomediastinal silhouette is unremarkable. Impression: No acute cardiopulmonary process. Electronically Signed by Demetrius Unger DO 08/08/2019 02:58 P
[2019-08-08 15:15] VITALS: BP 115/72
--- NOTE | 2019-08-08 16:59 | ECGEPIP ---
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
== END 2019-08-08 15:44 | disposition home or self-care (01) ==
LOC: M ED 12:26
DX: F41.8 Other specified anxiety disorders (principal); Z79.899 Other long term (current) drug therapy

== ENCOUNTER 2019-10-28 21:15 | Emergency (ER) | payer OTHER ==
[~2019-10-28] VITALS: Ht 147.3 cm; Wt 61.4 kg
[~2019-10-28 21:15] MED LIST changes: +TOPI100T9 OR
[2019-10-28] MEDS ORDERED: KETOROLAC 30 MG/ML VIAL (J1885) IV ONE (22:30)
[2019-10-28] MEDS ORDERED: NS 1,000 ML IV ONE (22:30)
[2019-10-28] MEDS ORDERED: METOCLOPRAMIDE INJ 10MG/2ML VIAL (J2765) IV ONE (22:30)
[2019-10-28] MEDS ORDERED: diphenhydrAMINE INJ 50MG/ML VIAL (J1200) IV ONE (22:30)
[2019-10-28 23:49] VITALS: BP 106/52
== END 2019-10-28 23:55 | disposition home or self-care (01) ==
LOC: M ED 21:15
DX: R51 Headache (principal); G89.29 Other chronic pain; Z79.3 Long term (current) use of hormonal contraceptives; Z79.899 Other long term (current) drug therapy; Z87.820 Personal history of traumatic brain injury; Z86.69 Personal history of other diseases of the nervous system and sense organs
CPT/HCPCS: 96361; 96374; 96375; 99284; J1200; J1885; J2765

== ENCOUNTER 2019-11-23 14:02 | Emergency (ER) | payer OTHER ==
[~2019-11-23] VITALS: Ht 149.9 cm; Wt 79.3 kg
[2019-11-23 14:03] VITALS: BP 128/60
[2019-11-23] MEDS ORDERED: IBUP-1114 PO (14:13)
[2019-11-23] MEDS ORDERED: PROAAER10 INH (14:13)
== END 2019-11-23 16:04 | disposition home or self-care (01) ==
LOC: M ED 14:02
DX: R05 Cough (principal)

== ENCOUNTER 2020-02-15 13:04 | Emergency (ER) | payer OTHER ==
[~2020-02-15] VITALS: Ht 149.9 cm; Wt 68.2 kg
[~2020-02-15 13:04] MED LIST changes: +IBUP-1114 PO; +PROAAER10 INH
[2020-02-15 14:14] LABS: BASO % 0.3 % (0.0-1.0); EOS % 0.9 % (0.0-3.0); HEMATOCRIT 40.8 % (36.0-47.0); HEMOGLOBIN 13.4 g/dl (12.0-15.5); LYMPH # 1.6 10^3/uL (1.5-5.0); LYMPH % 45.2 % (24.0-44.0); MEAN CORPUSCULAR HEMOGLOBIN 27.5 pg (27.0-33.0); MEAN CORPUSCULAR HGB CONC 32.8 g/dl (32.0-36.5); MEAN CORPUSCULAR VOLUME 83.8 fl (80.0-96.0); MONO # 0.3 10^3/uL (0.0-0.8); MONO % 8.6 % (0.0-5.0); NEUTROPHILS # 1.6 10^3/uL (1.5-8.5); NEUTROPHILS % 44.7 % (36.0-66.0); PLATELET COUNT, AUTOMATED 307 10^3/uL (150-450); RED BLOOD COUNT 4.87 10^6/uL (4.00-5.40); WHITE BLOOD COUNT 3.5 10^3/uL (4.0-10.0)
[2020-02-15] MEDS ORDERED: NS 1,000 ML IV ONE (14:15)
[2020-02-15 14:25] LABS: INR 1.11
[2020-02-15 14:26] LABS: PARTIAL THROMBOPLASTIN TIME 33.4 SECONDS (25.0-38.4)
[2020-02-15 14:35] LABS: D-DIMER QUANT < 270 ng/ml (<500)
[2020-02-15 14:43] LABS: ALT/SGPT 64 U/L (12-78); BILIRUBIN,TOTAL 0.4 MG/DL (0.2-1.0); BLOOD UREA NITROGEN 10 MG/DL (7-18); CALCIUM LEVEL 8.8 MG/DL (8.5-10.1); CARBON DIOXIDE LEVEL 24 MEQ/L (21-32); CHLORIDE LEVEL 109 MEQ/L (98-107); CK-MB VALUE MASS 1.2 NG/ML (<3.6); CPK CREATINE PHOSPHOKINASE 148 U/L (26-192); CREATININE FOR GFR 0.73 MG/DL (0.55-1.30); FERRITIN 50 NG/ML (8-252); FREE T4 1.25 NG/DL (0.76-1.46); GLOMERULAR FILTRATION RATE > 60.0 (>60); GLUCOSE, FASTING 81 MG/DL (70-100); LDH LACTATE DEHYDROGENASE 251 U/L (84-246); MAGNESIUM LEVEL 2.1 MG/DL (1.8-2.4); MB/CK RELATIVE INDEX 0.81 (< OR =4); POTASSIUM SERUM 4.1 MEQ/L (3.5-5.1); SODIUM LEVEL 140 MEQ/L (136-145); TOTAL PROTEIN 7.5 GM/DL (6.4-8.2); TROPONIN I < 0.02 NG/ML (< 0.10)
[2020-02-15 14:48] LABS: HCG, SERUM QUALITATIVE NEGATIVE (NEGATIVE)
[2020-02-15 20:25] VITALS: BP 122/76
--- NOTE | 2020-02-16 01:26 | ECGEPIP ---
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
--- NOTE | 2020-02-16 09:44 | REP ---
Clinical: Syncope/near-syncopal episode . Comparison: 08/08/2019 . Findings: The mediastinum and cardiac silhouette are stable and within normal limits for portable technique. The lung bell are clear without acute consolidation, effusion, or pneumothorax. Skeletal structures are intact. Impression: No acute cardiopulmonary process appreciated. Electronically Signed by Jason Mckinnon MD 02/16/2020 09:36 A
== END 2020-02-15 21:10 | disposition home or self-care (01) ==
LOC: M ED 13:04
DX: U07.1 COVID-19 (principal); Z79.51 Long term (current) use of inhaled steroids